=== PATIENT | male | born 1995 | race Caucasian/White ===

== ENCOUNTER 2017-12-19 00:11 | Emergency (ER) | payer BC ==
[~2017-12-19] VITALS: Ht 185.4 cm; Wt 81.4 kg
[2017-12-19 00:15] VITALS: TEMP 36.6; Ht 185.4 cm; Wt 81.4 kg
[2017-12-19] MEDS ORDERED: IBUP-103 PO (00:38)
[2017-12-19 02:32] VITALS: BP 150/93; PULSE 94; O2SAT 98
--- NOTE | 2017-12-19 02:37 | EMERGENCY ROOM VISIT NOTE ---
History First contact with patient: 00:20 Chief Complaint: THROAT PAIN/INJURY Stated Complaint: SWOLLEN TONSIL,DELGADO FUR ON TONGUE History of Present Illness The patient is a 22 year old male who presents to the Emergency Room with complaints of sore throat and possible discoloration to his tongue for the past week. Patient denies chest pain, dyspnea, fever, chills, cough, congestion, neck stiffness, dysphagia, earache, abdominal pain. He is tolerating p.o. fluids and food. No HIV/IVDU. Review of Systems An 10 system review of systems was completed with positives and pertinent negatives listed in the HPI. Past Medical/Surgical History None Social History Smoking Status: Never Smoker Smokeless Tobacco Use: No Drug Use: none Occupation Status: [employer] student Current/Historical Medications Scheduled PRN Ibuprofen Tab (Advil), 200-600 MG PO Q4H PRN for Pain Physical Exam Vital Signs Date Time Temp Pulse Resp B/P (MAP) Pulse Ox O2 Delivery O2 Flow Rate FiO2 12/19/17 00:21 Room Air 12/19/17 00:15 36.6 117 18 175/107 99 Room Air Physical Exam VITALS: Vitals are noted on the nurse's note and reviewed by myself. Vital signs stable. GENERAL: Pleasant male speaking in full sentences, in no acute distress, nondiaphoretic, well-developed well-nourished. SKIN: The skin was without rashes, erythema, edema, or bruising. There is no tenting of the skin. Capillary reflex less than 2 seconds. HEAD: Normocephalic atraumatic. EARS: External auditory canals clear, tympanic membranes pearly delgado without erythema or effusion bilaterally. EYES: Pupils equal round and reactive to light and accommodation. Conjunctivae without injection, sclerae without icterus. Extraocular movements intact. NOSE: Patent, turbinates without inflammation or discharge. No sinus tenderness. MOUTH: Mucous membranes moist. Tonsils are not enlarged. Pharynx with erythema without exudate. Uvula midline. Airway patent. Tongue does not deviate. NECK: Supple without nuchal rigidity. No lymphadenopathy. No thyromegaly. Cervical spine is nontender. No JVD. HEART: Regular rate and rhythm without murmurs gallops or rubs. LUNGS: Clear to auscultation bilaterally without wheezes, rales or rhonchi. No dullness to percussion. No retractions or accessory muscle use. ABDOMEN: Positive bowel sounds x 4. Normal tympanic percussion. Soft, nontender, without masses or organomegaly. Phillips sign negative. No guarding or rebound tenderness. MUSCULOSKELETAL: No muscle atrophy, erythema, or edema noted. NEURO: Patient was alert and oriented to person place and time. Normal sensation to light and sharp touch. No focal neurological deficits. Medical Decision & Procedures Laboratory Results Test 12/19/17 01:05 [facility] NEG (NEG) ED Course Prior records/ancillary studies reviewed. Triage Nursing notes reviewed. The patient's history was concerning for a sore throat. Differential diagnosis: Etiologies such as viral syndrome, tonsillitis, streptococcal pharyngitis, mononucleosis, peritonsillar abscess, retropharyngeal abscess, otitis, pneumonia , influenza, as well as others were entertained. ER treatment provided: pt was observed On reassessment the patient felt better. Diagnostics interpreted by me: The labs revealed neg mono and strep test and this was sent for culture This appears to be consistent with pharyngitis most likely viral in etiology. Patient is well-appearing. He had no signs of airway compromise. He had no signs of meningitis and no signs of abscess. He had no discoloration to his tongue. Patient states he googled issues with this throat and was concerned and this is a prompted him to come to the ER. Patient denied any IV drug abuse or HIV status. He was advised to take medicines as directed, rest, stay well hydrated and follow health services in a few days or here in the ER sooner for high fevers, lethargy, dysphagia, neck stiffness, worsening signs or symptoms or as needed. By the evaluation outlined above emergent etiologies such as peritonsillar abscess, retropharyngeal abscess, otitis, pneumonia, meningitis, urinary tract infection, sepsis, bacteremia, as well as others were deemed relatively unlikely. The pt informed about the findings as listed above. All questions were answered and pleased with the treatment. Return instructions were outlined and the patient was discharged in stable condition. Referral: The patient was referred back to their primary care physician for follow-up in 2 to 3 days for a recheck of the current condition. Medical Decision as above Medication Reconcilliation Current Medication List: was personally reviewed by me Blood Pressure Screening Patient's blood pressure: Normal blood pressure Impression Primary Impression: Pharyngitis Departure Information Referrals [facility] (PCP) Patient Instructions [facility] Problem Qualifiers Primary Impression: Pharyngitis Pharyngitis/tonsillitis etiology: unspecified etiology Qualified Codes: J02.9 - Acute pharyngitis, unspecified
--- NOTE | 2017-12-21 15:53 | Pharmacy Progress Note ---
ED Pharmacist Culture FollowUp Date of Service: Dec 21, 2017. Patient called ED today requesting results of throat cx. The back-up cx is growing Grp C strep which may reflect normal jody however can cause a pharyngitis as well. Patient states his sore throat is no better and he noticed white spots in the back of his throat. I reviewed results w/ Dr Farnsworth. Pt to begin Amoxicillin 500mg PO BID x 5 days. Discussed with patient. He requested Rx be sent to [facility] [address] [place] [id number] . I called the Rx there per his request in suspension form (250mg/ 5mL)
== END 2017-12-19 02:33 | disposition home or self-care (01) ==
LOC: C.EDB 00:13
DX: J02.9 Acute pharyngitis, unspecified (principal)